=== PATIENT | male | born 1970 | race Caucasian/White ===

== ENCOUNTER → 2018-05-06 16:58 | Outpatient (CLI) | payer BC, SELFPAY ==
--- NOTE | 2018-05-06 17:05 | CT_ITS ---
STUDY: CT ABDOMEN AND PELVIS WITHOUT CONTRAST REASON FOR EXAM: Male, 47 years old. Sporadic penile pain. RADIATION DOSAGE (If Supplied By Facility): CTDIvol = ( 17.91 ) mGy, DLP = ( 1515.80 ) mGycm TECHNIQUE: Transaxial images were obtained from the dome of the diaphragm to the symphysis pubis without oral contrast, and without intravenous contrast. Sagittal and coronal images were reconstructed. Individualized dose optimization techniques were used for this CT. COMPARISON: None. FINDINGS: The visualized lung bases are unremarkable. The visualized portions of the heart are within normal limits. Normal liver. Normal gallbladder and extrahepatic biliary system. Normal spleen. Normal pancreas. Normal bilateral adrenal glands. Normal right kidney. Normal left kidney. There is a small hiatal hernia. Normal small intestine. There are scattered colonic diverticula consistent with diverticulosis. The appendix is visualized and appears normal. Normal abdominal aorta. Normal inferior vena cava. Normal retroperitoneum. Normal urinary bladder. Small benign-appearing bilateral inguinal nodes. Normal abdominal wall. There are degenerative changes of the visualized lumbar spine. CT/Abdomen/Pelvis without Cont IMPRESSION: Small hiatal hernia. Scattered sigmoid diverticula. Electronically Signed: Frederick Mcknight MD at 7:49 EDT Tel [phone], Service support ,
--- NOTE | 2018-05-06 17:18 | US_ITS ---
STUDY: SCROTUM ULTRASOUND REASON FOR EXAM: Male, 47 years old. Penile pain. The left testicle than the right. TECHNIQUE: Ultrasound evaluation of the scrotum was performed with color Doppler and static bueno-scale imaging. COMPARISON: None. FINDINGS: RIGHT TESTICLE The right testis is normal in size and echotexture measuring 4.7 x 3.1 x 2.4 cm. It is homogeneous and has a tiny calcification in its inferior third. Normal vascular flow is noted throughout. A 9 mm epididymal cyst is seen in the right hemiscrotum. The epididymal head itself measures 1.6 x 1.5 x 0.9 cm. There is no right-sided hydrocele formation and there is no right-sided varicocele. LEFT TESTICLE The left testis is also very homogeneous in echotexture and measures 3.6 x 2.0 x 2.1 cm. It demonstrates normal vascular flow through it. The epididymal head measures 0.7 x 0.8 x 0.3 cm. There is no hydrocele formation and no varicocele. IMPRESSION No evidence of any epididymoorchitis on either side. No testicular or extratesticular masses on either side. A benign 9 mm right-sided epididymal cyst. No evidence of testicular torsion Electronically Signed: Tiago Valenzuela, at 4:54 EDT Tel , Service support , US/Testicular with Arterial Flow
== END ==
PROVIDERS: Family Provider Family Medicine; PCP Family Medicine; Visit Provider Nurse Practitioner Adult Health
DX: N20.0 Calculus of kidney (principal); N48.89 Other specified disorders of penis
CPT/HCPCS: 74176; 76870; 93976

== ENCOUNTER → 2018-05-09 15:11 | Outpatient (CLI) | payer BC, SELFPAY ==
[2018-05-09 18:25] LABS: PSA,Total - Annual Screen 0.41 ng/mL (0.00-4.00)
== END ==
PROVIDERS: Family Provider Family Medicine; PCP Family Medicine; Visit Provider Nurse Practitioner Adult Health
DX: Z12.5 Encounter for screening for malignant neoplasm of prostate (principal)
CPT/HCPCS: 36415; 84153; G0103

== ENCOUNTER → 2018-05-23 15:01 | Outpatient (CLI) | payer BC, SELFPAY | PROVIDERS: Family Provider Family Medicine; PCP Family Medicine; Visit Provider Nurse Practitioner Adult Health | DX: R30.0 Dysuria (principal) | CPT/HCPCS: 87086 ==

== ENCOUNTER → 2020-03-26 | Outpatient (CLI) | payer BC, SELFPAY ==
[2020-03-26 10:02] LABS: Anion Gap 4 (5-15); BUN 11 mg/dL (7-18); BUN/Creat Ratio 13.5 RATIO (10-20); Calcium,Total 9.1 mg/dL (8.5-10.1); Chloride 108 mmol/L (98-107); Creatinine, Serum 0.82 mg/dL (0.70-1.30); EST Glomerular Filtration Rate 106 mL/min (>60); Est Glom Filt Rate - Afr Amer 128 mL/min (>60); Glucose 154 mg/dL (74-106); Potassium 4.5 mmol/L (3.5-5.1); Sodium Level 141 mmol/L (136-145)
[2020-03-26 10:11] LABS: Hemoglobin A1c 7.1 % (4.2-6.3)
== END | disposition home or self-care (01) ==
LOC: LAB 09:27
PROVIDERS: PCP Family Medicine; Referring Provider Family Medicine; Visit Provider Family Medicine
DX: E11.9 Type 2 diabetes mellitus without complications (principal); Z51.81 Encounter for therapeutic drug level monitoring
CPT/HCPCS: 36415; 80048; 83036

== ENCOUNTER → 2020-07-23 | Outpatient (CLI) | payer BC, SELFPAY ==
[2020-07-23 12:39] LABS: ALB/GLOB Ratio 0.8 RATIO (0.9-2.4); AST(SGOT) 38 U/L (15-37); Alanine Aminotransfer ALT/SGPT 63 U/L (16-61); Albumin, Serum 3.3 g/dL (3.2-5.0); Alkaline Phosphatase 120 U/L (45-117); Anion Gap 4 (5-15); BUN 14 mg/dL (7-18); Calcium,Total 8.8 mg/dL (8.5-10.1); Chloride 106 mmol/L (98-107); Creatinine, Serum 0.74 mg/dL (0.70-1.30); EST Glomerular Filtration Rate 118 mL/min (>60); Est Glom Filt Rate - Afr Amer 143 mL/min (>60); Globulin 3.9 g/dL (2.2-4.2); Glucose 169 mg/dL (74-106); Potassium 4.5 mmol/L (3.5-5.1); Protein, Total 7.2 g/dL (6.4-8.2); Sodium Level 141 mmol/L (136-145)
[2020-07-23 13:27] LABS: Hemoglobin A1c 7.5 % (3.8-5.6)
== END | disposition home or self-care (01) ==
LOC: LAB 11:09
PROVIDERS: PCP Family Medicine; Referring Provider Family Medicine; Visit Provider Family Medicine
DX: E11.9 Type 2 diabetes mellitus without complications (principal); R79.89 Other specified abnormal findings of blood chemistry
CPT/HCPCS: 36415; 80053; 83036

== ENCOUNTER → 2020-08-22 | Outpatient (CLI) | payer BC, SELFPAY ==
--- NOTE | 2020-08-22 07:50 | US_ITS ---
STUDY: ABDOMINAL ULTRASOUND - RIGHT UPPER QUADRANT REASON FOR VISIT: Male, 50 years old ELEVATED LFTS TECHNIQUE: Ultrasound evaluation of the right upper quadrant was performed with real-time and static bueno-scale imaging. TECHNICAL QUALITY: Limited. Examination limited due to a combination of factors including obesity and bowel gas. COMPARISON: None. FINDINGS: Liver: The liver measures 17.9 cm. There is increased echogenicity consistent with fatty infiltration. The bile ducts are within normal limits. There is hepatic color flow. The direction of portal flow is hepatopetal. There is no demonstrated mass lesion. Gallbladder: Normal distended gallbladder. The gallbladder wall measures 3 mm. There is a negative sonographic Durant''s sign. There is no pericholecystic fluid. There are no gallstones. Common Bile Duct (C.B.D.): The common bile duct measures 4 mm. Pancreas: The pancreas is obscured by bowel gas. Right Kidney: Normal size of the right kidney. The right kidney measures 11.9 x 6.2 x 6.5 cm. Normal renal cortex. The right cortex measures 2.5 cm. There is no demonstrated renal mass or cyst. There is no right hydronephrosis. US/Liver IMPRESSION: Limited study. Echogenic liver suggestive of steatosis. Pancreas was obscured by bowel gas. Electronically Signed: Arun Hargrove MD at 18:48 EDT , Service support ,
== END | disposition home or self-care (01) ==
LOC: US 07:49
PROVIDERS: PCP Family Medicine; Referring Provider Family Medicine; Visit Provider Family Medicine
DX: R79.89 Other specified abnormal findings of blood chemistry (principal)
CPT/HCPCS: 76705

== ENCOUNTER → 2020-09-21 16:14 | Outpatient (CLI) | payer BC, SELFPAY ==
[2020-09-21 18:09] LABS: AST(SGOT) 46 U/L (15-37); Alanine Aminotransfer ALT/SGPT 80 U/L (16-61); Albumin, Serum 3.3 g/dL (3.2-5.0); Alkaline Phosphatase 148 U/L (45-117); Bilirubin, Direct 0.13 mg/dL (0.00-0.30); GGTP 131 U/L (15-85); Globulin 4.3 g/dL (2.2-4.2); Protein, Total 7.6 g/dL (6.4-8.2)
[2020-09-22 14:35] LABS: Hepatitis C Antibody Non-Reactive (Nonreactive)
== END ==
PROVIDERS: PCP Family Medicine; Referring Provider Internal Medicine Gastroenterology; Visit Provider Internal Medicine Gastroenterology
DX: K75.9 Inflammatory liver disease, unspecified (principal)
CPT/HCPCS: 36415; 80076; 82977; 86803

== ENCOUNTER → 2020-09-30 07:14 | Outpatient (CLI) | payer BC, SELFPAY ==
--- NOTE | 2020-09-30 07:18 | US_ITS ---
STUDY: ABDOMINAL ULTRASOUND - RIGHT UPPER QUADRANT REASON FOR VISIT: Male, 50 years old FATTY LIVER -- ABN LABS TECHNIQUE: Ultrasound evaluation of the right upper quadrant was performed with real-time and static bueno-scale imaging. TECHNICAL QUALITY: Limited. Examination limited by bowel gas. COMPARISON: Comparison is made with prior study 08/22/2020. FINDINGS: Liver: The liver measures 17.9 cm. There is increased echogenicity consistent with fatty infiltration. The bile ducts are within normal limits. There is hepatic color flow. The direction of portal flow is hepatopetal. There is no demonstrated mass lesion. Gallbladder: Normal distended gallbladder. The gallbladder wall measures 2.0 mm. There is a negative sonographic Durant''s sign. There is no pericholecystic fluid. There are no gallstones. Common Bile Duct (C.B.D.): The common bile duct measures 5.1 mm. Pancreas: Normal size of the head, body and tail of the pancreas. There is normal echogenicity of the pancreas. There is no demonstrated pancreatic mass or cyst. Right Kidney: Normal size of the right kidney. The right kidney measures 11.9 cm x 6.7 cm x 5.9 cm. Normal renal cortex. The right cortex measures 2. cm. There is no demonstrated renal mass or cyst. There is no right hydronephrosis. IMPRESSION: Fatty infiltration of the liver. Electronically Signed: Frederick Mcknight, at 13:38 EST , Service support , STUDY: ABDOMINAL ULTRASOUND - ELASTOGRAPHY REASON FOR VISIT: Male, 50 years old. Fatty infiltration of the liver. TECHNIQUE: Liver stiffness measurements were obtained on a [employer] 85 ultrasound machine using a CA-1-7 probe following the SRU guidelines. 3 a valid measurements were obtained using a 2-D - SWE method. The IQR/M was 25% suggesting a quality data set. TECHNICAL QUALITY: Adequate. COMPARISON: None. FINDINGS: Liver: There is no demonstrated mass lesion. Median liver stiffness value (Metavir ) measured 17.5 kPa. US/Liver IMPRESSION: Liver stiffness measures 17.5 kPa compatible with F3-F4 Metavir score. This is suggestive of clinically significant portal hypertension. Electronically Signed: Frederick Mcknight, at 13:45 EST , Service support ,
--- NOTE | 2020-09-30 07:18 | US_ITS ---
STUDY: ABDOMINAL ULTRASOUND - RIGHT UPPER QUADRANT REASON FOR VISIT: Male, 50 years old FATTY LIVER -- ABN LABS TECHNIQUE: Ultrasound evaluation of the right upper quadrant was performed with real-time and static bueno-scale imaging. TECHNICAL QUALITY: Limited. Examination limited by bowel gas. COMPARISON: Comparison is made with prior study 08/22/2020. FINDINGS: Liver: The liver measures 17.9 cm. There is increased echogenicity consistent with fatty infiltration. The bile ducts are within normal limits. There is hepatic color flow. The direction of portal flow is hepatopetal. There is no demonstrated mass lesion. Gallbladder: Normal distended gallbladder. The gallbladder wall measures 2.0 mm. There is a negative sonographic Durant''s sign. There is no pericholecystic fluid. There are no gallstones. Common Bile Duct (C.B.D.): The common bile duct measures 5.1 mm. Pancreas: Normal size of the head, body and tail of the pancreas. There is normal echogenicity of the pancreas. There is no demonstrated pancreatic mass or cyst. Right Kidney: Normal size of the right kidney. The right kidney measures 11.9 cm x 6.7 cm x 5.9 cm. Normal renal cortex. The right cortex measures 2. cm. There is no demonstrated renal mass or cyst. There is no right hydronephrosis. IMPRESSION: Fatty infiltration of the liver. Electronically Signed: Frederick Mcknight, at 13:38 EST , Service support , STUDY: ABDOMINAL ULTRASOUND - ELASTOGRAPHY REASON FOR VISIT: Male, 50 years old. Fatty infiltration of the liver. TECHNIQUE: Liver stiffness measurements were obtained on a [employer] 85 ultrasound machine using a CA-1-7 probe following the SRU guidelines. 3 a valid measurements were obtained using a 2-D - SWE method. The IQR/M was 25% suggesting a quality data set. TECHNICAL QUALITY: Adequate. COMPARISON: None. FINDINGS: Liver: There is no demonstrated mass lesion. Median liver stiffness value (Metavir ) measured 17.5 kPa. US/Elastography Parenchyma/Organ IMPRESSION: Liver stiffness measures 17.5 kPa compatible with F3-F4 Metavir score. This is suggestive of clinically significant portal hypertension. Electronically Signed: Frederick Mcknight, at 13:45 EST , Service support ,
== END ==
PROVIDERS: PCP Family Medicine; Referring Provider Internal Medicine Gastroenterology; Visit Provider Internal Medicine Gastroenterology
DX: K76.0 Fatty (change of) liver, not elsewhere classified (principal)
CPT/HCPCS: 76705; 76981

== ENCOUNTER → 2020-11-25 06:06 | Outpatient (CLI) | payer BC, SELFPAY ==
[2020-11-25 07:42] LABS: Hemoglobin A1c 7.6 % (3.8-5.6)
== END ==
PROVIDERS: PCP Family Medicine; Referring Provider Family Medicine; Visit Provider Family Medicine
DX: E11.9 Type 2 diabetes mellitus without complications (principal)
CPT/HCPCS: 36415; 83036

== ENCOUNTER → 2021-04-29 09:38 | Outpatient (CLI) | payer BC, SELFPAY ==
[2021-04-29 10:17] LABS: Absolute Lymphocyte Count 1.08 X10^3/uL (0.83-4.51); Absolute Neutrophil Count 2.6 X10^3/uL (2.0-7.7); Basophil# 0.06 X10^3/uL; Basophil% 1.4 % (0-1); Eosinophil# 0.16 X10^3/uL; Eosinophils% 3.7 % (0-5); Hematocrit 41.5 % (40-54); Hemoglobin 14.6 g/dL (13.0-16.5); Lymphocyte # 1.08 X10^3/ul (0.83-4.51); Lymphocyte % 24.9 % (19-41); Mean Corp Hgb Conc 35.2 g/dL (32-36); Mean Corpuscular Hgb 34.2 pg (27.0-32.0); Mean Corpuscular Volume 97.2 fL (80-94); Mean Platelet Vol. 10.7 fl (6.2-12.0); Monocyte# 0.42 X10^3/uL; Monocyte% 9.7 % (0-10); NRBC Flagged by Analyzer 0 % (0-5); Neutrophil % 60.1 % (47-70); Platelet Count 156 K/mm3 (150-450); RBC Distribution Width CV 12.1 % (11.6-14.6); RBC Distribution Width SD 43.6 fl (35.1-43.9); Red Blood Count 4.27 M/mm3 (4.6-6.2); White Blood Count 4.3 K/mm3 (4.4-11.0)
[2021-04-29 10:53] LABS: Cholesterol 178 mg/dL (200); High Density Lipoprotein 66 mg/dL; Triglycerides 94 mg/dL; Very Low Density Lipoprotein 19 mg/dL (5-40)
[2021-04-29 10:57] LABS: Hemoglobin A1c 7.6 % (3.8-5.6)
== END ==
PROVIDERS: PCP Family Medicine; Referring Provider Family Medicine; Visit Provider Family Medicine
DX: E11.9 Type 2 diabetes mellitus without complications (principal); E78.5 Hyperlipidemia, unspecified; Z51.81 Encounter for therapeutic drug level monitoring
CPT/HCPCS: 36415; 80061; 83036; 85025

== ENCOUNTER → 2022-08-24 | Outpatient (CLI) | payer OTHER, SELFPAY ==
[2022-08-24 08:08] LABS: Cholesterol 179 mg/dL (200); High Density Lipoprotein 63 mg/dL; Triglycerides 147 mg/dL; Very Low Density Lipoprotein 29 mg/dL (5-40)
[2022-08-24 09:19] LABS: Hemoglobin A1c 8.7 % (3.8-5.6)
== END | disposition home or self-care (01) ==
PROVIDERS: PCP Family Medicine; Referring Provider Family Medicine; Visit Provider Family Medicine
DX: E11.9 Type 2 diabetes mellitus without complications (principal); E78.5 Hyperlipidemia, unspecified
CPT/HCPCS: 36415; 80061; 83036

== ENCOUNTER → 2022-10-02 | Outpatient (CLI) | payer OTHER, SELFPAY ==
[2022-10-02 16:48] LABS: Anion Gap 5 (5-15); BUN 13 mg/dL (7-18); BUN/Creat Ratio 16.2 RATIO (10-20); Calcium,Total 8.8 mg/dL (8.5-10.1); Chloride 102 mmol/L (98-107); EST Glomerular Filtration Rate 106 mL/min (>60); Est Glom Filt Rate - Afr Amer 129 mL/min (>60); Glucose 278 mg/dL (74-106); Potassium 4.2 mmol/L (3.5-5.1); Sodium Level 135 mmol/L (136-145)
== END | disposition home or self-care (01) ==
LOC: LAB 15:24
PROVIDERS: PCP Family Medicine; Visit Provider Family Medicine
DX: Z51.81 Encounter for therapeutic drug level monitoring (principal)
CPT/HCPCS: 36415; 80048

== ENCOUNTER → 2022-11-24 | Outpatient (CLI) | payer OTHER, SELFPAY ==
[2022-11-24 12:59] LABS: Hemoglobin A1c 9.8 % (3.8-5.6)
== END | disposition home or self-care (01) ==
LOC: LAB 11:43
PROVIDERS: PCP Family Medicine; Referring Provider Family Medicine; Visit Provider Family Medicine
DX: E11.9 Type 2 diabetes mellitus without complications (principal)
CPT/HCPCS: 36415; 83036

== ENCOUNTER → 2023-01-01 | Outpatient (CLI) | payer OTHER, SELFPAY | END | disposition home or self-care (01) | LOC: SL 13:23 | PROVIDERS: PCP Nurse Practitioner Family; Referring Provider Nurse Practitioner Family; Visit Provider Nurse Practitioner Family | DX: G47.10 Hypersomnia, unspecified (principal) | CPT/HCPCS: 95806 ==

== ENCOUNTER → 2023-01-18 | Outpatient (CLI) | payer OTHER, SELFPAY | END | disposition home or self-care (01) | LOC: SL 06:34 | PROVIDERS: PCP Nurse Practitioner Family; Visit Provider Nurse Practitioner Family | DX: G47.33 Obstructive sleep apnea (adult) (pediatric) (principal) ==

== ENCOUNTER → 2023-07-25 | Outpatient (CLI) | payer OTHER, SELFPAY ==
--- NOTE | 2023-07-25 07:09 | US_ITS ---
STUDY: ABDOMINAL ULTRASOUND - RIGHT UPPER QUADRANT REASON FOR VISIT: Male, 53 years old RUQ PAIN TECHNIQUE: Ultrasound evaluation of the right upper quadrant was performed with real-time and static bueno-scale imaging. TECHNICAL QUALITY: Limited. COMPARISON: Comparison is made with prior study dated September 30, 2020. FINDINGS: Liver: The liver measures 15.5 cm. There is increased echogenicity consistent with fatty infiltration. The bile ducts are within normal limits. There is hepatic color flow. The direction of portal flow is hepatopetal. There is no demonstrated mass lesion. Gallbladder: Normal distended gallbladder. The gallbladder wall measures 3 mm. There is a negative sonographic Durant''s sign. There is no pericholecystic fluid. There are no gallstones. Common Bile Duct (C.B.D.): The common bile duct measures 4 mm. Pancreas: There is nonvisualization of the pancreas due to overlying bowel gas. Right Kidney: Normal size of the right kidney. The right kidney measures 12.8 cm x 6.3 cm x 6.8 cm. Normal renal cortex. The right cortex measures 2.2 cm. There is no demonstrated renal mass or cyst. There is no right hydronephrosis. US/Abdomen Limited IMPRESSION: Fatty infiltration of the liver. Electronically Signed: Frederick Mcknight MD at 14:08 EDT ,
== END | disposition home or self-care (01) ==
PROVIDERS: Referring Provider Nurse Practitioner Family; Visit Provider Nurse Practitioner Family
DX: R10.11 Right upper quadrant pain (principal)
CPT/HCPCS: 76705

== ENCOUNTER → 2024-06-11 | Outpatient (CLI) | payer OTHER, SELFPAY ==
[2024-06-11 17:15] LABS: Absolute Lymphocyte Count 1.33 X10^3/uL (0.83-4.51); Absolute Neutrophil Count 2.3 X10^3/uL (2.0-7.7); Basophil# 0.04 X10^3/uL; Eosinophil# 0.13 X10^3/uL; Eosinophils% 3.1 % (0-5); Hematocrit 42.9 % (40-54); Hemoglobin 14.9 g/dL (13.0-16.5); Lymphocyte # 1.33 X10^3/ul (0.83-4.51); Mean Corp Hgb Conc 34.7 g/dL (32-36); Mean Corpuscular Volume 97.9 fL (80-94); Mean Platelet Vol. 10.3 fl (6.2-12.0); Monocyte# 0.38 X10^3/uL; Monocyte% 9.2 % (0-10); NRBC Flagged by Analyzer 0 % (0-5); Neutrophil # 2.26 X10^3/uL (2.7-7.7); Neutrophil % 54.5 % (47-70); Platelet Count 120 K/mm3 (150-450); RBC Distribution Width CV 12.4 % (11.6-14.6); Red Blood Count 4.38 M/mm3 (4.6-6.2); White Blood Count 4.2 K/mm3 (4.4-11.0)
[2024-06-11 17:35] LABS: Vitamin B12 485 pg/mL (211-911); Vitamin D,25 Hydroxy 32.4 ng/mL
[2024-06-11 17:38] LABS: ALB/GLOB Ratio 0.7 RATIO (0.9-2.4); AST(SGOT) 69 U/L (15-37); Alanine Aminotransfer ALT/SGPT 91 U/L (16-61); Albumin, Serum 3.1 g/dL (3.2-5.0); Alkaline Phosphatase 182 U/L (45-117); Anion Gap 7 (5-15); BUN 16 mg/dL (7-18); BUN/Creat Ratio 18.2 RATIO (10-20); Calcium,Total 8.9 mg/dL (8.5-10.1); Chloride 107 mmol/L (98-107); Cholesterol 172 mg/dL (200); Creatinine, Serum 0.88 mg/dL (0.70-1.30); EST Glomerular Filtration Rate 96 mL/min (>60); Est Glom Filt Rate - Afr Amer 116 mL/min (>60); Globulin 4.3 g/dL (2.2-4.2); Glucose 150 mg/dL (74-106); High Density Lipoprotein 70 mg/dL; PSA,Total - Annual Screen 0.31 ng/mL (0.00-4.00); Potassium 4.2 mmol/L (3.5-5.1); Protein, Total 7.4 g/dL (6.4-8.2); Sodium Level 139 mmol/L (136-145); Thyroid Stim Hormone (TSH) 0.67 uIU/mL (0.358-3.74); Triglycerides 74 mg/dL; Very Low Density Lipoprotein 15 mg/dL (5-40)
[2024-06-11 17:48] LABS: Microalbumin,Random Urine < 5.0 mg/L (NO RANGE EST.)
== END | disposition home or self-care (01) ==
LOC: VSLAB 15:58
PROVIDERS: PCP Nurse Practitioner Family; Visit Provider Nurse Practitioner Family
DX: E11.9 Type 2 diabetes mellitus without complications (principal)
CPT/HCPCS: 36415; 80053; 80061; 82043; 82306; 82607; 84153; 84443; 85025; G0103

== ENCOUNTER → 2024-08-29 | Outpatient (CLI) | payer OTHER, SELFPAY ==
[2024-08-29 09:03] LABS: Absolute Lymphocyte Count 1.04 X10^3/uL (0.83-4.51); Basophil# 0.06 X10^3/uL; Basophil% 0.6 % (0-1); Eosinophil# 0.15 X10^3/uL; Eosinophils% 1.5 % (0-5); Hematocrit 46.2 % (40-54); Hemoglobin 16.1 g/dL (13.0-16.5); Lymphocyte # 1.04 X10^3/ul (0.83-4.51); Lymphocyte % 10.5 % (19-41); Mean Corp Hgb Conc 34.8 g/dL (32-36); Mean Corpuscular Hgb 34.2 pg (27.0-32.0); Mean Corpuscular Volume 98.1 fL (80-94); Mean Platelet Vol. 11.8 fl (6.2-12.0); Monocyte% 6.1 % (0-10); NRBC Flagged by Analyzer 0 % (0-5); Neutrophil # 7.97 X10^3/uL (2.7-7.7); Neutrophil % 80.9 % (47-70); Platelet Count 106 K/mm3 (150-450); RBC Distribution Width CV 12.4 % (11.6-14.6); RBC Distribution Width SD 44.7 fl (35.1-43.9); Red Blood Count 4.71 M/mm3 (4.6-6.2); White Blood Count 9.9 K/mm3 (4.4-11.0)
[2024-08-29 10:38] LABS: ALB/GLOB Ratio 0.8 RATIO (0.9-2.4); AST(SGOT) 60 U/L (15-37); Alanine Aminotransfer ALT/SGPT 83 U/L (16-61); Albumin, Serum 3.3 g/dL (3.2-5.0); Alkaline Phosphatase 159 U/L (45-117); Anion Gap 4 (5-15); BUN 14 mg/dL (7-18); BUN/Creat Ratio 18.2 RATIO (10-20); Calcium,Total 9.3 mg/dL (8.5-10.1); Chloride 108 mmol/L (98-107); Creatinine, Serum 0.77 mg/dL (0.70-1.30); EST Glomerular Filtration Rate 111 mL/min (>60); Est Glom Filt Rate - Afr Amer 134 mL/min (>60); Globulin 4.3 g/dL (2.2-4.2); Glucose 152 mg/dL (74-106); Potassium 4.5 mmol/L (3.5-5.1); Protein, Total 7.6 g/dL (6.4-8.2); Sodium Level 136 mmol/L (136-145)
[2024-09-10 15:09] LABS: Testosterone, % Free 1.59 % (1.50-4.20); Testosterone, Free 18.14 ng/dL (5.00-21.00); Testosterone, Total 1141 ng/dL (264-916)
== END | disposition home or self-care (01) ==
LOC: LAB 08:21
PROVIDERS: PCP Nurse Practitioner Family; Referring Provider Nurse Practitioner Family; Visit Provider Nurse Practitioner Family
DX: I10 Essential (primary) hypertension (principal); E29.1 Testicular hypofunction
CPT/HCPCS: 36415; 80053; 84402; 84403; 85025

== ENCOUNTER → 2024-10-13 | Outpatient (CLI) | payer OTHER, SELFPAY ==
[2024-10-13 17:48] LABS: Absolute Neutrophil Count 2.9 X10^3/uL (2.0-7.7); Basophil# 0.05 X10^3/uL; Eosinophil# 0.13 X10^3/uL; Eosinophils% 2.7 % (0-5); Hematocrit 43.2 % (40-54); Hemoglobin 15.3 g/dL (13.0-16.5); Lymphocyte % 27.2 % (19-41); Mean Corp Hgb Conc 35.4 g/dL (32-36); Mean Corpuscular Hgb 34.4 pg (27.0-32.0); Mean Corpuscular Volume 97.1 fL (80-94); Mean Platelet Vol. 10.7 fl (6.2-12.0); Monocyte# 0.41 X10^3/uL; Monocyte% 8.6 % (0-10); NRBC Flagged by Analyzer 0 % (0-5); Neutrophil # 2.87 X10^3/uL (2.7-7.7); Neutrophil % 60.1 % (47-70); Platelet Count 126 K/mm3 (150-450); RBC Distribution Width CV 12.4 % (11.6-14.6); RBC Distribution Width SD 44.6 fl (35.1-43.9); Red Blood Count 4.45 M/mm3 (4.6-6.2); White Blood Count 4.8 K/mm3 (4.4-11.0)
[2024-10-13 18:28] LABS: ALB/GLOB Ratio 0.8 RATIO (0.9-2.4); AST(SGOT) 64 U/L (15-37); Alanine Aminotransfer ALT/SGPT 93 U/L (16-61); Albumin, Serum 3.2 g/dL (3.2-5.0); Alkaline Phosphatase 140 U/L (45-117); Anion Gap 5 (5-15); BUN 14 mg/dL (7-18); BUN/Creat Ratio 14.9 RATIO (10-20); Calcium,Total 9.4 mg/dL (8.5-10.1); Chloride 104 mmol/L (98-107); Creatinine, Serum 0.94 mg/dL (0.70-1.30); EST Glomerular Filtration Rate 88 mL/min (>60); Est Glom Filt Rate - Afr Amer 107 mL/min (>60); Globulin 4.1 g/dL (2.2-4.2); Glucose 154 mg/dL (74-106); Potassium 4.1 mmol/L (3.5-5.1); Protein, Total 7.3 g/dL (6.4-8.2); Sodium Level 136 mmol/L (136-145)
[2024-10-22 09:10] LABS: Testosterone, % Free 2.15 % (1.50-4.20); Testosterone, Free 19.74 ng/dL (5.00-21.00); Testosterone, Total 918 ng/dL (264-916)
== END | disposition home or self-care (01) ==
LOC: VSLAB 15:16
PROVIDERS: PCP Nurse Practitioner Family; Visit Provider Nurse Practitioner Family
DX: D69.6 Thrombocytopenia, unspecified (principal); E29.1 Testicular hypofunction
CPT/HCPCS: 36415; 80053; 84402; 84403; 85025

== ENCOUNTER 2024-11-24 13:11 | Day surgery (SDC) | payer BC, SELFPAY ==
[2024-11-24] VITALS (8 sets, daily range): BP systolic 85–128; BP diastolic 55–73; PULSE 58–93; RESP 16; TEMP 36.1–36.4; O2SAT 64–99; BMI 36.1
--- NOTE | 2024-11-24 13:17 | HP.PCM_ITS ---
HPI - General General Date of Admission: 11/24/24 Date of Service: 11/24/24 HPI Narrative PJ ALBERTS is a 54 M who presentsChief Complaint: PCP referred for fatty liver Details: PJ ALBERTS, is a 54 M who presents to the office today for referral by PCP for fatty liver. Reports fatigue and abdomen discomfort/burping/belching occasionally. Denies N/V/C/D and bloody stools. Reports formed and soft BM daily. Last colonoscopy was 5 years ago. No previous hx of EGD. Mounjaro weekly. Patient states he drinks 2 glasses of wine in 1 month. In his younger days in 20s to 30s used to drink a case of beer weekly. He was not binge drinker or heavy drinker in the past. Patient is morbidly obese and lost about 14 pounds in 1.5 kg on Mounjaro. [facility] Medical History Wears glasses Arthritis Non-smoker Sleep apnea CPAP (continuous positive airway pressure) dependence Leg cramps History of echocardiogram History of stress test History of irregular heartbeat Hearing problem Carpal tunnel syndrome Atrial fibrillation Thrombocytopenia Elevated liver enzymes ALEXYS (obstructive sleep apnea) Hypersomnia Heart murmur Hypertension Diabetes Home Medications ?Medication ?Instructions ?Recorded ?Last Taken ?Type sertraline 50 mg tablet 50 mg PO DAILY #90 tabs 01/01/23 Unknown Rx lisinopril 20 mg tablet 20 mg PO DAILY #90 tabs 02/05/23 Unknown Rx ondansetron 4 mg disintegrating 4 mg PO Q8H PRN nausea and 02/08/23 Unknown Rx tablet vomiting #30 tabs dapagliflozin propanediol 10 mg 10 mg PO QAM 09/16/24 Unknown History tablet (Farxiga) tirzepatide 7.5 mg/0.5 mL 7.5 mg subcut QWEEK 09/16/24 11/15/24 History subcutaneous pen injector (Mounjaro) carvedilol 6.25 mg tablet 6.25 mg PO BID 1 month #60 tabs 09/30/24 Unknown Rx omega 3-sfy-akg-fish oil 1,200 mg 2 cap PO DAILY 11/20/24 Unknown History (144 mg-216 mg) capsule (Fish Oil) Allergy/AdvReac Type Severity Reaction Status Date / Time No Known Allergies Allergy Verified 11/20/24 13:59 Family History Mother Cancer lung Atrial fibrillation Diabetes Hypertension Myocardial infarction Heart disease CVA (cerebral vascular accident) Father Diabetes Hypertension Atrial fibrillation Myocardial infarction Surgical History History of testicular surgery Social History Smoking Status: Never smoker alcohol intake: current alcohol intake frequency: a few times a month substance use type: does not use what type of physical activity do you participate in: walking frequency: daily seatbelt use: always do you feel safe at home: Yes ROS Constitutional Constitutional: Denies fatigue, fever(s), poor appetite, weight gain or weight loss Gastrointestinal Gastrointestinal: Denies belching, bloating, change in bowel habits, change in stool character, chewing difficulty, coffee ground emesis, constipation, cramping, diarrhea, dyspepsia, dysphagia, early satiety, excessive flatus, fecal incontinence, heartburn, hematemesis, hematochezia, hemorrhoids, loose stools, melena, nausea, odynophagia, rectal bleeding, tenesmus, vomiting or weight changes Physical Exam Const alert, oriented x3, no apparent distress and healthy appearing General Appearance: cooperative GI normal to inspection, nondistended, normoactive bowel sounds, soft to palpation, non-tender and non-distended Percussion: normal to percussion Rectal Exam: deferred Assessment & Plan Assessment/Plan (1) Portal hypertension: (2) 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 Patient has chronic fatigue with history of morbid obesity on Mounjaro. Lost about 14 pounds in 1 and half years on Mounjaro. Previous lab test reviewed. Decreasing trend of platelet from 1 56,000 in April 2021 TO 106,000 in August 2024. Liver chemistry also elevated, ALT 3 times normal, AST 2 times normal. Alkaline phosphatase 1.5 times. Total bilirubin normal. Albumin 3.3. A/G ratio reversal. Total bili 1.1. Hep C antibody negative. Patient had liver ultrasound with elastography in September [address] Adair which shows liver 17.9 cm, fatty infiltration with median liver stiffness 17.5 kPa. No demonstrated mass lesion. Gallbladder and biliary system within normal limit. Patient had repeat liver ultrasound by PCP Kelby Narvaez NP which did not include elastography. It shows fatty infiltration. Liver decreased in size 15.5 cm. With platelet count 106K and liver stiffness 17.5, it is obvious patient has portal hypertension therefore carvedilol 6.25 mg p.o. twice daily ordered. With diagnosis of cirrhosis and clinically significant portal hypertension, patient will need yearly triple phage CT/MRI for HCC surveillance and variceal surveillance. Will need EGD. Comprehensive lab work ordered to rule out other causes of cirrhosis. Liver ultrasound with elastography ordered. The patient has decreased blood pressure on carvedilol will need decreasing the dose of lisinopril. Follow-up in 3 months (2) Portal hypertension: Status: Chronic Orders: Orders ABD Limited w/ Elastography 3 Months K74.60 - Unspecified cirrhosis of liver, K75.81 - Nonalcoholic steatohepatitis (US) AFP, Tumor Marker 3 Months K74.60 - Unspecified cirrhosis of liver, K75.81 - Nonalcoholic steatohepatitis (US) Ammonia 3 Months K74.60 - Unspecified cirrhosis of liver, K75.81 - Nonalcoholic steatohepatitis (US) Anti-Smooth Muscle ABS 3 Months K74.60 - Unspecified cirrhosis of liver, K75.81 - Nonalcoholic steatohepatitis (US) Anti-Mitochondrial AB 3 Months K74.60 - Unspecified cirrhosis of liver, K75.81 - Nonalcoholic steatohepatitis (US) CBC W/Diff, Automated 3 Months K74.60 - Unspecified cirrhosis of liver, K75.81 - Nonalcoholic steatohepatitis (US) Hemoglobin A1c 3 Months K74.60 - Unspecified cirrhosis of liver, K75.81 - Nonalcoholic steatohepatitis (US) CRP 3 Months K74.60 - Unspecified cirrhosis of liver, K75.81 - Nonalcoholic steatohepatitis (US) Ferritin 3 Months K74.60 - Unspecified cirrhosis of liver, K75.81 - Nonalcoholic steatohepatitis (US) Copper, Serum or Plasma 3 Months K74.60 - Unspecified cirrhosis of liver, K75.81 - Nonalcoholic steatohepatitis (US) Comprehensive Metabolic Profil 3 Months K74.60 - Unspecified cirrhosis of liver, K75.81 - Nonalcoholic steatohepatitis (US) Ceruloplasmin 3 Months K74.60 - Unspecified cirrhosis of liver, K75.81 - Nonalcoholic steatohepatitis (US) Prothrombin Time w/INR 3 Months K74.60 - Unspecified cirrhosis of liver, K75.81 - Nonalcoholic steatohepatitis (US) Hepatitis Panel Acute 3 Months K74.60 - Unspecified cirrhosis of liver, K75.81 - Nonalcoholic steatohepatitis (US) HIV - [facility] 3 Months K74.60 - Unspecified cirrhosis of liver, K75.81 - Nonalcoholic steatohepatitis (US) Lipid Profile 3 Months K74.60 - Unspecified cirrhosis of liver, K75.81 - Nonalcoholic steatohepatitis (US) SILVANO w/ Reflex Mult Confirm 3 Months K74.60 - Unspecified cirrhosis of liver, K75.81 - Nonalcoholic steatohepatitis (US) Hepatitis B Surface Antibody 3 Months K74.60 - Unspecified cirrhosis of liver, K75.81 - Nonalcoholic steatohepatitis (US) Iron+Iron Binding Capacity 3 Months K74.60 - Unspecified cirrhosis of liver, K75.81 - Nonalcoholic steatohepatitis (US) Thyroid Stim Hormone (TSH) 3 Months K74.60 - Unspecified cirrhosis of liver, K75.81 - Nonalcoholic steatohepatitis (US) Vitamin D,25 Hydroxy 3 Months K74.60 - Unspecified cirrhosis of liver, K75.81 - Nonalcoholic steatohepatitis (US) Medications: New carvedilol
[2024-11-24 14:04] LABS: Bedside Glucose 97 mg/dL (74-106)
--- NOTE | 2024-11-24 14:04 | PRE.ANES_ITS ---
ASA Classification* ASA Classification ASA Classification: 2 Assessment & Plan Anesthesia* Anesthesia Assessment Anesthesia Assessment: Discussed sedation and/or anesthesia options, risks, benefits, and alternatives with patient/parents/legal guardian/POA. Questions invited. The patient/parents/legal guardian/POA seems to understand and agrees to proceed with anesthesia plan. Reviewed the physical assessment, medical history, allergy history and patient home medications list prior to surgery/procedure/anesthetic and documented any changes. Performed airway and anesthesia risk assessments. Anesthesia Type Anesthesia Type: MAC History Source History Obtained from:: Patient and Chart Anesthesia Focused Assessment* Temperature: 97.6 F Pulse Rate: 58 Blood Pressure: 128/73 Respiratory Rate: 16 Pulse Ox: 99 Oxygen Delivery Method: Room Air Airway Assessment Mouth opens: >3 cm Mallampati Score: II Teeth Condition: Intact Neck Range of motion (ROM): Full ROM Focused Labs Anesthesia Preop lab: CBC WBC 4.8 K/mm3 (4.4-11.0) 10/13/24 15:18 RBC 4.45 M/mm3 (4.6-6.2) L 10/13/24 15:18 Hgb 15.3 g/dL (13.0-16.5) 10/13/24 15:18 Hct 43.2 % (40-54) 10/13/24 15:18 Plt Count 126 K/mm3 (150-450) L 10/13/24 15:18 CHEMISTRY Potassium 4.1 mmol/L (3.5-5.1) 10/13/24 15:18 Sodium 136 mmol/L (136-145) 10/13/24 15:18 BUN 14 mg/dL (7-18) 10/13/24 15:18 Creatinine 0.94 mg/dL (0.70-1.30) 10/13/24 15:18 Glucose 154 mg/dL (74-106) H 10/13/24 15:18 POC Glucose 97 mg/dL (74-106) 11/24/24 13:30 TSH 0.67 uIU/mL (0.358-3.74) 06/11/24 15:59 COAG Pre-Assessment Diagnosis/Proposed Procedure Planned Operative Procedure(s): EGD Anesthesia History 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 When Was Last Pacemaker Check QUESTION #4 FULL TEXT: You/Your Family Experience fever (hyperthermia) with Anesthesia Last Oral Intake Last Oral intake: Last Oral Intake NPO since 06:30 11/24/24 13:36 Meds taken in AM with sips of Yes 11/24/24 13:36 water? Meds patient instructed to take am of surgery Any additional information?: Yes NPO since: 06:30 Meds taken in AM with sips of water?: Yes PONV PONV - motion picture equipment machinist: PONV - motion picture equipment machinist Female No 11/20/24 14:11 HX of Motion Sickness No 11/20/24 14:11 HX of N/V After Surgery No 11/20/24 14:11 Non-Smoker Yes 11/20/24 14:11 Duration of Surgery greater No 11/20/24 14:11 than 60 minutes Number of Risk Factors 1 11/20/24 14:11 PONV Score Low Risk 11/20/24 14:11 Height & Weight Height & Weight: Anesthesia: Height & Weight Height 5 ft 10 in 11/24/24 13:36 Weight: 114.2 kg 11/24/24 13:36 Body Mass Index (BMI) 36.1 11/24/24 13:36 Respiratory Assessment Respiratory Assessment - motion picture equipment machinist: Respiratory Tract Infection Hx - motion picture equipment machinist Hx Respiratory Tract Infection No 11/20/24 14:11 STOP Sleep Apnea STOP Sleep Apnea - motion picture equipment machinist: STOP Sleep Apnea - motion picture equipment machinist Hx Hypertension Yes: CONTROLLED ON MED 11/20/24 14:11 Hx Sleep Apnea Yes 11/20/24 14:11 CPAP Yes 11/20/24 14:11 BIPAP No 11/20/24 14:11 Do you snore loudly (louder than talking or can be heard Do you often feel tired/ fatigued/ sleepy during daytime? Has anyone observed you stop breathing during sleep? STOP Results Positive 11/20/24 14:11 QUESTION #5 FULL TEXT : Do you snore loudly (louder than talking or can be heard through closed doors)? Tobacco Use History Tobacco Use History - motion picture equipment machinist: Tobacco Use History - motion picture equipment machinist Tobacco Use Smoking Status Never smoker 11/20/24 14:11 Hx Tobacco Use No 11/20/24 14:11 Years Smoking Packs Smoked per Day Smoking Cessation Date was within the last 15 years Hx Smoking Cessation Date Hx Smoking Cessation Counseling Hematologic Medial History Hematologic Hx - motion picture equipment machinist: Hematologic Medical Hx - holter scanning technician Hx of Blood Transfusion No 11/20/24 14:11 Hx of Transfusion in last 3 No 11/20/24 14:11 Months Date of Last Transfusion (if within last 3 months) Ever experience any problems No 11/20/24 14:11 with transfusion(s)? Specify any problems Hx of Preganancy in last 3 N/A 11/20/24 14:11 Months Nurse Filling Out Transfusion VCHRISTIN 11/20/24 14:11 & Questions: Date: 11/20/24 11/20/24 14:11 Time: 14:12 11/20/24 14:11 Patient unable to answer at this time (ie. confused, unrespo /Reproduction History /Reproductive History - motion picture equipment machinist: /Reproductive Hx- motion picture equipment machinist Hx Now Gestational Age (in weeks): EDC: Hx Hx Para Hx Section SAB PFSH Medical History (Updated 11/24/24 @ 14:[address] Anthony Carney MD) Wears glasses Non-smoker Sleep apnea CPAP (continuous positive airway pressure) dependence Leg cramps History of echocardiogram History of stress test History of irregular heartbeat Carpal tunnel syndrome Thrombocytopenia Elevated liver enzymes ALEXYS (obstructive sleep apnea) Hypersomnia Heart murmur Hypertension Diabetes Home Medications ?Medication ?Instructions ?Recorded ?Last Taken ?Type sertraline 50 mg tablet 50 mg PO DAILY #90 tabs 01/01/23 Unknown Rx lisinopril 20 mg tablet 20 mg PO DAILY #90 tabs 02/05/23 Unknown Rx ondansetron 4 mg disintegrating 4 mg PO Q8H PRN nausea and 02/08/23 Unknown Rx tablet vomiting #30 tabs dapagliflozin propanediol 10 mg 10 mg PO QAM 09/16/24 Unknown History tablet (Farxiga) tirzepatide 7.5 mg/0.5 mL 7.5 mg subcut QWEEK 09/16/24 11/15/24 History subcutaneous pen injector (Mary) carvedilol 6.25 mg tablet 6.25 mg PO BID 1 month #60 tabs 09/30/24 11/24/24 06:30 Rx omega 7-utm-bkb-fish oil 1,200 mg 2 cap PO DAILY 11/20/24 Unknown History (144 mg-216 mg) capsule (Fish Oil) Allergy/AdvReac Type Severity Reaction Status Date / Time No Known Allergies Allergy Verified 11/24/24 13:36 Family History Mother Cancer lung Atrial fibrillation Diabetes Hypertension Myocardial infarction Heart disease CVA (cerebral vascular accident) Father Diabetes Hypertension Atrial fibrillation Myocardial infarction Surgical History History of testicular surgery Social History Smoking Status: Never smoker alcohol intake: current alcohol intake frequency: a few times a month substance use type: does not use what type of physical activity do you participate in: walking frequency: daily seatbelt use: always do you feel safe at home: Yes Review of Systems (Anesthesia) ROS Narrative System reviewed and no additional complaints, except as documented.
--- NOTE | 2024-11-24 14:15 | EGD_PTH ---
PATIENT: PJ ALBERTS Jr. LOC: EN U#:[id number] AGE/SX: 54/M ROOM: RE11/24/[address]: Dr. 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 Gastric Antrum, Biopsy: 1. Antral mucosa with intestinal metaplasia 2. An immunohistochemical stain with appropriate controls for H. pylori is negative. 3. No gastritis, ulceration, polyps, or dysplasia. B. Distal Esophagus, Biopsy: 1. Antral mucosa with intestinal metaplasia 2. A stain for Alcian Blue/PAS with appropriate controls is positive for goblet cells. 3. No squamous epithelium or mucosa 4. No ulcerations, exudates, or dysplasia BK, 11/26/24 COMMENT A. The results of immunohistochemistry for Helicobacter pylori will be reported separately ([id number]). B. Alcian blue/PAS stain with matched control is used in the evaluation of the specimen. MICROSCOPIC DESCRIPTION Slides are reviewed. GROSS DESCRIPTION A. Received in fixative is one container labeled with the patient's name and designated Gastric antrum biopsy. The specimen consists of two irregular fragments of light echeverria soft tissue that in aggregate measure 0.6 x 0.2 x 0.1 cm. The specimen is totally submitted in one cassette. B. Received in fixative is one container labeled with the patient's name and designated Distal esophagus biopsy. The specimen consists of two irregular fragments of light echeverria soft tissue that in aggregate measure 0.8 x 0.6 x 0.1 cm. The specimen is totally submitted in one cassette. 11/25/2024 TC:5 CPT:96123z1,91825
--- NOTE | 2024-11-24 14:15 | IMM_PTH ---
PATIENT: PJ ALBERTS Jr. LOC: EN U#:[id number] AGE/SX: 54/M ROOM: RE11/24/[address]: Dr. 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 Localization is made via biotin free immunoperoxidase method. Appropriate controls are performed and reacted as expected. Results on target cell population are indicated in the following table: RESULTS: ANTIBODY / CLONE RESULT Block A H Pylori (polyclonal) Negative for H. pylori organisms These tests were developed and their performance characteristics determined by [facility]. They may not have been cleared or approved by the U.S. Food and Drug Administration. The FDA has determined that such clearance or approval is not necessary. The above immunohistochemical/dual KVNG markers are ordered and reviewed by the Pathologist. INTERPRETATION: A. Gastric antrum, biopsy: An immunohistochemical stain with appropriate controls for H. pylori is negative for organisms. BK, 11/26/2024
--- NOTE | 2024-11-24 14:48 | OP.CCLET_ITS ---
11/24/2024 Kelby Narvaez [facility], Hand Box Folder-c Re : Upper GI endoscopy procedure for Junior Cortez Dear Brice This procedure was performed on Sunday, November 24, 2024. My impressions and recommendations are as follows: Impressions : - LA Grade A reflux esophagitis with no bleeding. Biopsied. - Gastritis. Biopsied. - Normal first portion of the duodenum. Recommendations : - Await pathology results. - Continue present medications. My findings are described in the full procedure note, which is enclosed. If I can be of further assistance, please feel free to contact me at . Sincerely, Andrew Cole, 11/24/2024 2:47:56 PM This report has been signed electronically.
--- NOTE | 2024-11-24 14:48 | OP.EGD_ITS ---
Patient Name: Junior Cortez Procedure Date: 11/24/2024 2:26 PM Date of : 1970 Age: 54 Procedure: Upper GI endoscopy Indications: Heartburn, Cirrhosis with suspected esophageal varices Providers: Andrew Cole DO Referring MD: Kelby Montano, Portable Sawyer-c Medicines: Monitored Anesthesia Care Patient Profile: This is a 54 year old male. Refer to note in patient chart for documentation of history and physical. Patient has symptoms of chronic heartburn. Complications: No immediate complications. Procedure: Pre-Anesthesia Assessment: - Prior to the procedure, a History and Physical was performed, and patient medications and allergies were reviewed. The patient is competent. The risks and benefits of the procedure and the sedation options and risks were discussed with the patient. All questions were answered and informed consent was obtained. Patient identification and proposed procedure were verified by the physician in the pre-procedure area. Mental Status Examination: alert and oriented. Airway Examination: normal oropharyngeal airway and neck mobility. Respiratory Examination: clear to auscultation. CV Examination: normal. Prophylactic Antibiotics: The patient does not require prophylactic antibiotics. Prior Anticoagulants: The patient has taken no anticoagulant or antiplatelet agents except for NSAID medication. ASA Grade Assessment: II - A patient with mild systemic disease. After reviewing the risks and benefits, the patient was deemed in satisfactory condition to undergo the procedure. The anesthesia plan was to use monitored anesthesia care (MAC). Immediately prior to administration of medications, the patient was re-assessed for adequacy to receive sedatives. The heart rate, respiratory rate, oxygen saturations, blood pressure, adequacy of pulmonary ventilation, and response to care were monitored throughout the procedure. The physical status of the patient was re-assessed after the procedure. After obtaining informed consent, the endoscope was passed under direct vision. Throughout the procedure, the patient's blood pressure, pulse, and oxygen saturations were monitored continuously. The gastroscope was introduced through the mouth, and advanced to the duodenal bulb. The upper GI endoscopy was accomplished without difficulty. The patient tolerated the procedure well. Scope In: 2:33:59 PM Scope Out: 2:37:54 PM Total Procedure Duration Time 0 hours 3 minutes 55 seconds Findings: LA Grade A (one or more mucosal breaks less than 5 mm, not extending between tops of 2 mucosal folds) esophagitis with no bleeding was found 38 to 40 cm from the incisors. Biopsies were taken with a cold forceps for histology. Verification of patient identification for the specimen was done. Estimated blood loss was minimal. Patchy mild inflammation characterized by erythema was found in the gastric antrum. Biopsies were taken with a cold forceps for histology. Verification of patient identification for the specimen was done. The first portion of the duodenum was normal. Impression: - LA Grade A reflux esophagitis with no bleeding. Biopsied. - Gastritis. Biopsied. - Normal first portion of the duodenum. Recommendation: - Await pathology results. - Continue present medications. Procedure Code(s): --- Professional --- 76009, Esophagogastroduodenoscopy, flexible, transoral; with biopsy, single or multiple CPT copyright 2021 [employer]. All rights reserved. The codes documented in this report are preliminary and upon assistant director of plant operations review may be revised to meet current compliance requirements. Andrew Cloe DO 11/24/2024 2:47:56 PM This report has been signed electronically. Number of Addenda: 0 Note Initiated On: 11/24/2024 2:26 PM
--- NOTE | 2024-11-24 14:48 | PCM.POST.ANE ---
Anesthesia: Postop Eval I Current Vital Signs Temperature: 97 F Pulse Rate: 84 Blood Pressure: 85/56 Respiratory Rate: 16 Pulse Ox: 97 Oxygen Delivery Method: Room Air Assessment Airway patent: Yes Spontaneous unlabored respirations: Yes Mental status: Awake and Calm nausea: No Vomiting: No Anesthesia Complication: No Fluid Hydration Crystalloid volume administer (ml): 30 Total IV fluid infused: 30 Progress Note Anesthesia document: Postop Eval 1 completed: Yes
--- NOTE | 2024-11-24 16:09 | PCM.POSTANE2 ---
Anesthesia Postop Eval I Sum Postop Eval Completion status Anesthesia document: Postop Eval 1 completed: Yes Anesthesia Postop Eval I Summary Anesthesia Postop Eval I Summary: Anesthesia Postop Eval I: Assessment Summary Airway patent Yes 11/24/24 14:49 [email or web address] Spontaneous unlabored Yes 11/24/24 14:49 [email or web address] respirations Mental status Awake,Calm 11/24/24 14:49 [email or web address] nausea No 11/24/24 14:49 [email or web address] Vomiting No 11/24/24 14:49 [email or web address] Anesthesia Postop Eval I: Fluid Summary Crystalloid volume administer 30 11/24/24 14:49 [email or web address] (ml) Colloids volume administered ( ml) Blood Product volume administered (ml) Total IV fluid infused 30 11/24/24 14:49 [email or web address] Anesthesia Postop Eval I: Summary Notes Anesthesia Complication No 11/24/24 14:49 [email or web address] Anesthesia Complication Comment: Post-operative progress note Anesthesia: Postop Eval II Evaluation Mental status: Awake and Calm Pain Level: 0 nausea: No Vomiting: No Complications Anesthesia Complication: No
== END 2024-11-24 15:10 | disposition home or self-care (01) ==
LOC: EN 13:12 → AC 13:13
PROVIDERS: PCP Nurse Practitioner Family; Referring Provider Nurse Practitioner Family; Visit Provider Internal Medicine Gastroenterology
PROC: 0DJ08ZZ Inspection of Upper Intestinal Tract, Via Natural or Artificial Opening Endoscopic (ICD-10-PCS; CPT 43235; principal; 2024-11-24 14:10)
DX: K21.00 Gastro-esophageal reflux disease with esophagitis, without bleeding (principal); K76.6 Portal hypertension; I48.91 Unspecified atrial fibrillation; E66.01 Morbid (severe) obesity due to excess calories; E11.9 Type 2 diabetes mellitus without complications; K29.70 Gastritis, unspecified, without bleeding; K31.A11 Gastric intestinal metaplasia without dysplasia, involving the antrum; K75.81 Nonalcoholic steatohepatitis (NASH); I10 Essential (primary) hypertension; D69.6 Thrombocytopenia, unspecified; G47.33 Obstructive sleep apnea (adult) (pediatric); Z68.36 Body mass index [BMI] 36.0-36.9, adult; Z79.899 Other long term (current) drug therapy
CPT/HCPCS: 43239; 82962; 88305; 88312; 88342; A4216; J2405

== ENCOUNTER → 2024-12-17 | Outpatient (CLI) | payer BC, SELFPAY ==
[2024-12-17 16:59] LABS: Absolute Lymphocyte Count 1.26 X10^3/uL (0.83-4.51); Absolute Neutrophil Count 2.4 X10^3/uL (2.0-7.7); Basophil# 0.04 X10^3/uL; Basophil% 0.9 % (0-1); Eosinophil# 0.14 X10^3/uL; Eosinophils% 3.3 % (0-5); Hematocrit 44.5 % (40-54); Hemoglobin 16.1 g/dL (13.0-16.5); Lymphocyte # 1.26 X10^3/ul (0.83-4.51); Lymphocyte % 29.5 % (19-41); Mean Corp Hgb Conc 36.2 g/dL (32-36); Mean Corpuscular Hgb 34.5 pg (27.0-32.0); Mean Corpuscular Volume 95.5 fL (80-94); Mean Platelet Vol. 11.2 fl (6.2-12.0); Monocyte# 0.42 X10^3/uL; Monocyte% 9.8 % (0-10); NRBC Flagged by Analyzer 0 % (0-5); Neutrophil % 56.3 % (47-70); Platelet Count 110 K/mm3 (150-450); RBC Distribution Width CV 12.4 % (11.6-14.6); RBC Distribution Width SD 43.6 fl (35.1-43.9); Red Blood Count 4.66 M/mm3 (4.6-6.2); White Blood Count 4.3 K/mm3 (4.4-11.0)
[2024-12-17 17:13] LABS: Prothrombin Time (Protime)PT. 13.4 SECONDS (11.7-14.9)
[2024-12-17 17:27] LABS: ALB/GLOB Ratio 0.7 RATIO (0.9-2.4); AST(SGOT) 68 U/L (15-37); Alanine Aminotransfer ALT/SGPT 95 U/L (16-61); Albumin, Serum 3.3 g/dL (3.2-5.0); Alkaline Phosphatase 169 U/L (45-117); Anion Gap 6 (5-15); BUN 17 mg/dL (7-18); CRP 8.11 mg/L (0.0-3.0); Chloride 106 mmol/L (98-107); Cholesterol 173 mg/dL (200); Creatinine, Serum 0.81 mg/dL (0.70-1.30); EST Glomerular Filtration Rate 105 mL/min (>60); Est Glom Filt Rate - Afr Amer 127 mL/min (>60); Ferritin 296 ng/mL (26-388); Globulin 4.5 g/dL (2.2-4.2); Glucose 123 mg/dL (74-106); High Density Lipoprotein 65 mg/dL; Iron 111 ug/dL (65-175); Iron Binding Capacity,Total 291 ug/dL (250-450); PERCENT IRON SATURATION 38.1 % (15.0-55.0); Protein, Total 7.8 g/dL (6.4-8.2); Sodium Level 137 mmol/L (136-145); Thyroid Stim Hormone (TSH) 0.658 uIU/mL (0.358-3.740); Triglycerides 118 mg/dL; Very Low Density Lipoprotein 24 mg/dL (5-40)
[2024-12-17 18:01] LABS: HIV - WCH Non-Reactive (Nonreactive); Hepatitis B Surface Antibody Non-Reactive; Vitamin D,25 Hydroxy 39.8 ng/mL
[2024-12-17 18:06] LABS: Microalbumin,Random Urine < 5.0 mg/L (NO RANGE EST.)
[2024-12-18 13:47] LABS: Hemoglobin A1c 6.4 % (3.8-5.6)
[2024-12-19 17:07] LABS: ANTINUCLEAR ANTIBODIES DIRECT Negative (Negative); Anti-Mitochondrial AB <20.0 Units (0.0-20.0)
[2024-12-22 07:07] LABS: AFP, Tumor Marker 3.5 ng/mL (0.0-8.4); Anti-Smooth Muscle ABS 8 Units (0-19); Ceruloplasmin 22.8 mg/dL (16.0-31.0); Copper, Serum or Plasma 94 ug/dL (69-132); HEPATITIS B SURFACE AG Negative (Negative); Hep C Antibodies Non Reactive (Non Reactive); Hepatitis A IgM Antibody Negative (Negative); Hepatitis B Core AB IgM Negative (Negative)
== END | disposition home or self-care (01) ==
LOC: VSLAB 15:48
PROVIDERS: Internal Medicine; PCP Nurse Practitioner Family; Visit Provider Nurse Practitioner Family
DX: D69.6 Thrombocytopenia, unspecified (principal); K74.60 Unspecified cirrhosis of liver; E11.9 Type 2 diabetes mellitus without complications; K75.81 Nonalcoholic steatohepatitis (NASH)
CPT/HCPCS: 36415; 80053; 80061; 80074; 82043; 82105; 82306; 82390; 82525; 82728; 83036; 83516; 83540; 83550; 84443; 85025; 85610; 86038; 86140; 86703; 86706

== ENCOUNTER → 2025-01-02 | Outpatient (CLI) | payer BC, SELFPAY ==
--- NOTE | 2025-01-02 08:51 | US_ITS ---
PROCEDURE: ABD LIMITED W/ ELASTOGRAPHY REASON FOR EXAM: US. Cirrhosis. COMPARISON: None. TECHNIQUE: Right upper quadrant abdominal ultrasound. [employer] ElastQ Imaging shear wave elastography for non-invasive assessment of liver tissue stiffness. [employer]raine EPIQ Elite. FINDINGS: LIVER: Size: Unremarkable Length: 15.8 cm Echotexture: Coarsened Contour: Normal Lesions: There is a 3 cm x 1.9 cm x 1.8 cm hypoechoic nodule in the left lobe of the liver. This may represent a focal area of focal fatty sparing. Correlation with a CT scan recommended. Elastography: EQI Med: 11 kPa EQI Med Franck: 1.9 m/s IQR/Med: 15 %* GALLBLADDER: Normal COMMON BILE DUCT: Normal it measures 4.6 cm.. PANCREAS: Obscured by bowel gas. Visualized portions of the right kidney are unremarkable. No right upper quadrant ascites. Splenomegaly. The spleen measures 13.7 cm 6.4 cm 7.2 cm. US/ABD Limited w/ Elastography IMPRESSION: MODERATE TO SEVERE HEPATIC FIBROSIS Splenomegaly. 3 cm x 1.9 cm x 1.8 cm hypoechoic nodule in the left lobe of the liver. Correl ation with CT scan recommended. Reference Values: SRU <1.37 m/s (5.7kPa): No to mild fibrosis 1.37 m/s - 2.2 m/s: Moderate to severe fibrosis >2.2 m/s (15kPa): Significant fibrosis / cirrhosis METAVIR Score F2 or higher: 1.34 m/s (5.7kPa) F3 or higher: 1.55 m/s (7.3kPa) F4: 1.80 m/s (10kPa) * If the IQR/Med is >30%, the variance in the measurements is a large and the a ccuracy of the measurement may be in question. Reading Location: [facility]
== END | disposition home or self-care (01) ==
LOC: US 08:32
PROVIDERS: PCP Nurse Practitioner Family; Referring Provider Internal Medicine; Visit Provider Internal Medicine
DX: K75.81 Nonalcoholic steatohepatitis (NASH) (principal); K74.60 Unspecified cirrhosis of liver
CPT/HCPCS: 36415; 76705; 76981; 82140

== ENCOUNTER → 2025-06-30 | Outpatient (CLI) | payer BC, SELFPAY ==
[2025-06-30 15:43] LABS: Hematocrit 42.3 % (40-54); Hemoglobin 15.0 g/dL (13.0-16.5); Immature Granulocytes Count 0.010 X10^3/uL (0.0-0.0); Mean Corp Hgb Conc 35.5 g/dL (32-36); Mean Corpuscular Volume 98.4 fL (80-94); Mean Platelet Vol. 11.2 fl (6.2-12.0); NRBC Flagged by Analyzer 0 % (0-5); Platelet Count 124 K/mm3 (150-450); RBC Distribution Width CV 12.4 % (11.6-14.6); RBC Distribution Width SD 44.8 fl (35.1-43.9); Red Blood Count 4.30 M/mm3 (4.6-6.2); White Blood Count 4.3 K/mm3 (4.4-11.0)
[2025-06-30 16:19] LABS: AST(SGOT) 68 U/L (<=37); Alanine Aminotransfer ALT/SGPT 94 U/L (<=46); Albumin, Serum 3.8 g/dL (3.5-5.0); Alkaline Phosphatase 161 U/L (40-129); Anion Gap 12 (5-15); BUN 12 mg/dL (4-19); BUN/Creat Ratio 13.6 RATIO (10-20); Calcium,Total 9.1 mg/dL (7.6-11.0); Carbon Dioxide 23.1 mmol/L (21.0-32.0); Chloride 103 mmol/L (98-108); Cholesterol 168 mg/dL (<=200); Globulin 3.3 g/dL (2.2-4.2); Glucose 123 mg/dL (70-99); Low Density Lipoprotein Calc. 76 mg/dL; Potassium 4.2 mmol/L (3.3-5.1); Triglycerides 81 mg/dL; Very Low Density Lipoprotein 16 mg/dL (5-40); cholesterol:hdl ratio screen 2.20
[2025-06-30 16:49] LABS: Prothrombin Time (Protime)PT. 12.9 SECONDS (11.7-14.9)
== END | disposition home or self-care (01) ==
LOC: LAB 15:05
PROVIDERS: PCP Nurse Practitioner Family; Referring Provider Internal Medicine; Visit Provider Internal Medicine
DX: K76.6 Portal hypertension (principal); K74.60 Unspecified cirrhosis of liver; E11.9 Type 2 diabetes mellitus without complications; K75.81 Nonalcoholic steatohepatitis (NASH); D69.6 Thrombocytopenia, unspecified
CPT/HCPCS: 36415; 80053; 80061; 82105; 83036; 85025; 85610

== ENCOUNTER → 2025-07-29 | Outpatient (CLI) | payer BC, SELFPAY ==
--- NOTE | 2025-07-29 15:55 | CT_ITS ---
PROCEDURE: CT ABD/PELVIS W/WO CONTRAST 07/29/2025 REASON FOR EXAM: R/O HCC,3CM HYPOECHOIC LESION IN US Cirrhosis. TECHNIQUE: Procedure Code: [id number] Modality: CT Procedure: CT ABD/PELVIS W/WO CONTRAST Coronal and Sagittal reconstruction series were provided. CONTRAST: Isovue 370 VOLUME: 1 5 mL One or more dose reduction techniques were used (e.g., Automated exposure control, adjustment of the mA and/or kV according to patient size, use of iterative reconstruction technique. RADIATION DOSE SUMMARY: CTDlvol: 110 mGy DLP: 2722 mGycm COMPARISON: Ultrasound. FINDINGS: Lung bases: Negative. ABDOMEN Liver: Liver the moderately shrunken and slightly irregular no definitive liver mass negative. Biliary system: Negative. Negative for intrahepatic or extrahepatic ductal dilatation. Gallbladder: Contracted and contains stones. Negative for cholecystitis. Spleen: Negative. Pancreas: Negative. Adrenals: Negative. Kidneys: Negative. Negative for kidney stones, cysts or masses. Bowel: Moderate increased stool throughout the colon. Moderate diffuse diverticulosis. Negative for small or large-bowel obstruction. Appendix: Negative Vasculature: Mild atherosclerotic vascular calcifications of the abdominal aorta and its branches. Peritoneum / Retroperitoneum: No definitive varices. Negative. PELVIS Lymph nodes: Negative for inguinal or iliac adenopathy. Bladder: . Reproductive Organs: Prostate negative Bones and Soft Tissues: Age appropriate degenerative changes of the lumbar spine hips and pelvis. CT/CT Abd/Pelvis W/WO Contrast IMPRESSION: Cirrhosis of the liver without distinct mass. Cholelithiasis without cholecystitis. No evidence of portal hypertension. Reading Location: [id number]
== END | disposition home or self-care (01) ==
PROVIDERS: PCP Nurse Practitioner Family; Referring Provider Internal Medicine; Visit Provider Internal Medicine
DX: K75.81 Nonalcoholic steatohepatitis (NASH) (principal); K76.6 Portal hypertension; K74.60 Unspecified cirrhosis of liver; D69.6 Thrombocytopenia, unspecified
CPT/HCPCS: 74178; Q9967